=== PATIENT | female | born 1970 | race Caucasian/White ===

== ENCOUNTER 2022-07-24 22:06 | Emergency (ER) | payer OTHER, SELFPAY ==
[2022-07-24 22:04] VITALS: BP 137/91; PULSE 94; RESP 16; TEMP 36.9; O2SAT 97; BMI 32.8
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
[2022-07-24 23:06] VITALS: BP 137/91; PULSE 94; RESP 16; TEMP 36.9; O2SAT 97
== END 2022-07-24 23:08 ==
LOC: ER 22:17
PROVIDERS: Emergency Provider Emergency Medicine
DX: F29 Unspecified psychosis not due to a substance or known physiological condition
CPT/HCPCS: 99283